=== PATIENT | male | born 1995 | race African-American/Black ===

== ENCOUNTER 2024-05-15 16:19 | Emergency (ER) | payer OTHER ==
[~2024-05-15] VITALS: Ht 167.6 cm; Wt 76.2 kg
[2024-05-15 16:54] VITALS: BP 123/65; PULSE 73; RESP 18; TEMP 97.3; O2SAT 99
[2024-05-15] MEDS ORDERED: IBUP-2213 PO (17:25)
[2024-05-15] MEDS: IBUPROFEN 600 MG TAB PO ONE (17:37)
== END 2024-05-15 18:17 | disposition home or self-care (01) ==
LOC: MED 16:19
DX: K08.89 Other specified disorders of teeth and supporting structures (principal); Z79.899 Other long term (current) drug therapy
CPT/HCPCS: 99282